=== PATIENT | male | born 1945 | race Caucasian/White ===

== ENCOUNTER 2016-11-03 15:30 | Emergency (ER) | payer OTHER ==
[2016-11-03 15:36] VITALS: BP 146/97; PULSE 99; RESP 16; TEMP 98.1; O2SAT 94
--- NOTE | 2016-11-03 17:47 | CT ---
Unenhanced CT Scan of the Brain and Facial Bones Clinical History: 70-year-old male who fell forward today, hitting his mouth and sustaining a lacerat ion to the upper right lip, and also complaining of a slight headache. Technique: Standard unenhanced axial CT images were acquired from the skull base to the skull vertex, with images reformatted at 5.00 and 1.50 mm increments, and reviewed in bone, brain, and subdural wi ndows. The DFOV is 25 cm. Subsequently, a multidetector unenhanced helical CT scan was obtained throu gh the facial bones, from the level of the caudal frontal calvarium inferiorly to the thyroid cartila ge, reformatted at 1.00 mm increments, and reviewed in bone and soft tissue windows. The DFOV is 17.7 cm. Parasagittal and paracoronal reconstructed images of the brain and face are also provided. A dos e reduction protocol was used. Comparison Study: None. Findings: UNENHANCED CT SCAN OF THE BRAIN: The ventricles and basilar cisterns are normal in size (given the pa tient's age), and symmetrical in configuration. There is no midline shift, or other evidence of mass effect. There is no acute or subacute abnormal intra or extra-axial fluid collection, or infarction. The brainstem and cerebellum appear normal. The craniocervical junction, sella turcica, pineal gland, and the orbits appear normal. There is trace mucosal thickening in the inferomedial left maxillary s inus, and there is mild leftward nasal septal deviation. The other paranasal sinuses and the mastoids are unremarkable. There is no evidence of a skull fracture. Impression: There is no acute intracranial abnormality. UNENHANCED CT SCAN OF THE FACIAL BONES: The right superior lip laceration is noted on sagittal series 11, images 80-96 and on axial series 6, images 62-65. There is beam-hardening artifact associated wi th metallic dental crowns. The mandibular and maxillary alveolar ridges are intact. The nasomaxillary spine on each side is intact and each of the nasal bones is intact. The medial and lateral pterygoid plates appear normal. The temporomandibular joints are anatomically-aligned, and the zygomatic arche s and the orbital rims appear normal. There is some mucosal thickening in the inferomedial left maxil sarwat sinus. There is no air-fluid level, or paranasal sinus wall fracture. There is reversal of the n ormal cervical lordosis with advanced degenerative disk space narrowing and ventral traction osteophy amy from C3 through C7. Impression: Right lip laceration, with no acute fracture. Results were conveyed to Connie Rod, Nurse Practitioner. A test result has been communicated to a licensed care provider and documented in [employer], 5:42:28 PM , 11/03/2016, [employer] Message ID [id number].
--- NOTE | 2016-11-03 18:41 | EDPHY ---
H & P Stated Complaint: lip lac Time Seen by Provider: 11/03/16 16:29 HPI/ROS: CHIEF COMPLAINT: lip laceration, head injury HISTORY OF PRESENT ILLNESS: 70-year-old male presents to the emergency department with a laceration to his upper lip. Patient was reaching up into the closet when a 40 lb speaker fell onto his face. Patient reports feeling lightheaded, denies confusion, no loss of consciousness, remembers the entire accident. Patient is not anticoagulated. He denies neck pain. Patient reports feeling crepitus in his right TMJ. His teeth fit together fine, he is able to open and closes mouth without difficulty and without pain. Tetanus is up-to- date. He denies other complaints. REVIEW OF SYSTEMS: A comprehensive 10 point review of systems is otherwise negative aside from elements mentioned in the history of present illness. Source: Patient Exam Limitations: No limitations - Personal History Current Tetanus Diphtheria and Acellular Pertussis (TDAP): Yes - Medical/Surgical History Hx Asthma: Yes Hx Chronic Respiratory Disease: No Hx Diabetes: No Hx Cardiac Disease: No Hx Renal Disease: No Hx Cirrhosis: No Hx Alcoholism: No Hx HIV/AIDS: No Hx Splenectomy or Spleen Trauma: No Other PMH: PSH: R shoulder; L knee; R hip replacement; wisdom teeth;. PMH: prostate CA w/ seed therapy; polio; equine encephalitis; child asthma; L wrist fx; L thumb fx - Family History Significant Family History: No pertinent family hx - Social History Smoking Status: Never smoked - Physical Exam Exam: General Appearance: Alert, no distress, talking appropriately, comfortable. Head: Atraumatic without scalp tenderness or obvious injury, no loose teeth, opens and closes mouth without difficulty, no TMJ abnormalities, no loose teeth , no maxillary or mandibular tenderness to palpation Eyes: Pupils equal, round, reactive to light, EOMI, no trauma, no injection. Ears: Clear bilaterally, no perforation, no hemotympanum Nose: Atraumatic, no rhinorrhea, no septal hematoma Neck: The cervical spine is non-tender and there is no pain or neurologic deficits with active range of motion. Cardiovascular:Good capillary refill all extremities. Extremities: normal appearing, no complaints. There is full active range of motion of the joints. Neurological: The patient has normal DTRs and non-focal Cranial nerves, motor, sensory, and cerebellar exam. Skin: 2 cm horizontal laceration to upper lip just above vermilion border, 2 mm laceration to upper inside the that does not communicate with outside laceration Constitutional: Initial Vital Signs Temperature (C) 36.7 C 11/03/16 15:33 Heart Rate 99 11/03/16 15:33 Respiratory Rate 16 11/03/16 15:33 Blood Pressure 146/97 H 11/03/16 15:33 O2 Sat (%) 94 11/03/16 15:33 O2 Delivery Mode Room Air Allergies/Adverse Reactions: No Known Allergies Allergy (Unverified 05/23/10 09:26) Home Medications: Medication Instructions Recorded Cephalexin 500Mg Prepack#4 [Keflex] 500 mg PO QID #20 tab 05/23/10 NO HOME MEDS 05/23/10 oxyCODONE/APAP 5/325 [Percocet 1 tab PO Q4PRN PRN #15 tab 05/23/10 5/325] IBUPROFEN 10/30/15 Naproxen Sodium 10/30/15 predniSONE [Prednisone] 20 mg PO DAILY #15 tablet 10/30/15 Medical Decision Making - Diagnostics Imaging: CT maxillofacial- Impression: Right lip laceration, with no acute fracture. Results were conveyed to Connie Rod, Nurse Practitioner. A test result has been communicated to a licensed care provider and documented in [employer], 5:42:28 PM, 11/03/2016, [employer] Message ID [id number]. Dictated By: Best Loyd MD CT brain- Impression: There is no acute intracranial abnormality. Procedures: Procedure: Laceration repair. Verbal consent was obtained from the patient. The 2 cm horizontal laceration just above upper lip on right side was anesthetized using 2.5 mL of 1% lidocaine without epinephrine and 2.5 mL of 0.5% bupivacaine with epinephrine. The wound was carefully irrigated by the emergency department pharmacy intake technician. Next, the wound was prepped and draped in sterile fashion and explored to its base with a gloved finger. There were no deep structures involved. No vascular injury was identified. No foreign bodies were identified. The wound was repaired with 6.0 Prolene running stitch and 3 simple interrupted stitches. The wound repair was simple. The procedure was performed by myself. Tetanus and antibiotic status were addressed. ED Course/Re-evaluation: This patient presents after a minor head injury with no loss of consciousness LOC or amnesia though the patient has a mild headache and lightheadedness.Neurologic exam normal. CT brain and CT maxillofacial are normal. CHI precautions given. Patient with a laceration that is 2 cm long, horizontal to just above upper lip patient was given. The patient was given the option of having a plastic surgeon suture this and he declined this and feels comfortable with me suturing the laceration. Laceration was sutured without difficulty. Patient reports the crepitus he was hearing or feeling in his right ear is resolving and is 60% better than when he arrived. Patient was given return precautions. My supervising physician Dr. Yoon has seen and evaluated this patient. Differential Diagnosis: The differential diagnosis for the patient's head injury included but was not limited to concussion, skull fracture, intra-parenchymal contusion, subarachnoid , subdural and epidural hematoma. Departure - Departure Disposition: Home, Routine, Self-Care Clinical Impression: Lip laceration Qualifiers: Qualifier Code: (S01.511A) Laceration without foreign body of lip, initial encounter Minor head injury without loss of consciousness Qualifiers: Qualifier Code: (S09.90XA) Unspecified injury of head, initial encounter Condition: Good Instructions: Facial Laceration (ED), Care For Your Stitches (ED), Head Injury (ED) Additional Instructions: Return to the emergency department for any forceful vomiting, confusion, altered gait, any other questions or concerns. Return in 4-[address] days [address] removal[address] antibiotic ointment on your laceration or several times a day, keep this out of the sun. Follow up with the oral maxillary surgeon for continued TMJ pain in 7-10 days. Take 600 mg of ibuprofen every 8 hours for 3-5 days for pain and swelling as needed. Referrals: Pedro Saxena DDS [Doctor of Dental Surgery] - As per Instructions (Oral surgeon manufacturing controller)
== END 2016-11-03 18:50 | disposition home or self-care (01) ==
PROC: 0CQ0XZZ Repair Upper Lip, External Approach (ICD-10-PCS; principal; 2016-11-03)
DX: S01.511A Laceration without foreign body of lip, initial encounter (principal); S09.90XA Unspecified injury of head, initial encounter; J45.909 Unspecified asthma, uncomplicated; Z85.46 Personal history of malignant neoplasm of prostate; W20.8XXA Other cause of strike by thrown, projected or falling object, initial encounter

== ENCOUNTER → 2018-07-15 | Outpatient (CLI) | payer OTHER | LOC: BHFA 09:00 | PROVIDERS: ATTEND Internal Medicine Cardiovascular Disease | DX: Z82.49 Family history of ischemic heart disease and other diseases of the circulatory system (principal) ==